=== PATIENT | male | born 1970 | race American Indian/Alaskan Native ===

== ENCOUNTER 2024-04-21 17:35 | Emergency (ER) | payer MEDICAID, SELFPAY ==
[2024-04-21 17:35] VITALS: BMI 39.9
[2024-04-21 18:01] VITALS: BP 169/103; PULSE 96; RESP 20; TEMP 36.8; O2SAT 98; BMI 37.5
--- NOTE | 2024-04-21 18:16 | EDNOTE_ITS ---
ED Male Genitalurinary RME/HPI General Chief complaint: Abdominal Pain Stated complaint: LOWER ABD PAIN, HERNIA IS SWOLLEN Time Seen by Provider: 04/21/24 18:01 Source: patient Arrival date/time: 04/21/24 17:35 53-year-old male with past medical history right inguinal hernia pending visit with general surgeon Dr. To at presents emergency department complaining of right testicular/inguinal pain has been ongoing for over a year. Patient denies any fever, chills, diarrhea, nausea vomiting, dysuria, gross hematuria, or any other associated symptom. Mode of arrival: ambulatory Limitations: no limitations Related Data Previous Rx's ?Medication ?Instructions ?Recorded doxycycline hyclate 100 mg capsule 100 mg PO BID 10 days #20 caps 04/21/24 ibuprofen 600 mg tablet 600 mg PO Q8H PRN pain #20 tabs 04/21/24 Allergies Allergy/AdvReac Type Severity Reaction Status Date / Time No Known Allergies Allergy Verified 04/21/24 17:37 Review of Systems Review of Systems Systems Reviewed: All systems reviewed, normal except as documented Constitutional Constitutional: Reports system reviewed and no additional complaints, except as documented, Denies body ache(s), Denies chills and Denies fever(s) Eyes Eyes: Reports system reviewed and no additional complaints, except as documented and Denies change in vision ENT Ears, Nose, Mouth, and Throat: Reports system reviewed and no additional complaints, except as documented, Denies disequilibrium, Denies dizziness, Denies sore throat and Denies vertigo Cardiovascular Cardiovascular: Reports system reviewed and no additional complaints, except as documented, Denies chest pain and Denies dyspnea Respiratory Respiratory: Reports system reviewed and no additional complaints, except as documented, Denies chest congestion, Denies cough and Denies dyspnea Gastrointestinal Gastrointestinal: Reports system reviewed and no additional complaints, except as documented, Denies abdominal pain, Denies nausea and Denies vomiting Genitourinary Genitourinary: Reports testicular pain Musculoskeletal Musculoskeletal: Reports system reviewed and no additional complaints, except as documented, Denies abnormal gait and Denies arthralgias Integumentary/Breasts Skin/Breast: Reports system reviewed and no additional complaints, except as documented, Denies erythema, Denies rash and Denies wounds Neurologic Neurologic: Reports system reviewed and no additional complaints, except as documented, Denies abnormal gait, Denies disequilibrium, Denies dizziness and Denies vertigo Past Medical History Past Medical History CARDIAC: Negative Congestive Heart Failure RESPIRATORY: Negative Chronic Obstructive Pulmonary Disease (COPD) GASTROINTESTINAL: Positive Gastrointestinal Disorders and Obstructive Bowel GENITOURINARY: Negative Renal Disease ENDOCRINE: Negative Diabetes Mellitus Type 1 or Diabetes Mellitus Type 2 Social History SMOKING STATUS: Current every day smoker ED Exam General Limitations: Present no limitations General appearance: Present alert and in no apparent distress Head Head exam: Present atraumatic Eye Eye exam: Present normal appearance, PERRL and EOMI ENT ENT exam: Present normal exam, normal oropharynx and mucous membranes moist Neck Neck exam: Present normal inspection, full ROM and trachea midline Chest Chest inspection: Present normal inspection and symmetric chest wall rise Respiratory Respiratory exam: Present normal lung sounds bilaterally Cardiovascular Cardiovascular exam: Present regular rate, normal rhythm and normal heart sounds Abdominal Exam Abdominal exam: Present soft and normal bowel sounds exam: Present testicular tenderness (Right testicle) and normal testicular lie; Absent urethral discharge or scrotal swelling Extremities Exam Extremities exam: Present normal inspection and full ROM Back Exam Back exam: Present normal inspection and full ROM Neurological Exam Neurological exam: Present alert, oriented X3 and CN II-XII intact Psychiatric Psychiatric exam: Present normal affect and normal mood Skin Skin exam: Present warm, dry, intact and normal color Course Quality Measures none Orders Category Date Time Status US testicular Stat Exams 04/21/24 18:18 Completed Urinalysis, C/S if Indicated Stat Lab 04/21/24 18:43 Completed Urine Culture Stat Lab 04/21/24 18:43 Received Ketorolac Inj [Toradol Inj] Med 04/21/24 18:16 Discontinued 30 mg IM X1 ONE cefTRIAXone [Rocephin] 1,000 mg Med 04/21/24 19:49 Discontinued Lidocaine 1% 20 ml [Xylocaine 1% 20 ML] 2.1 ml IM X1 Vital Signs Vital signs: Vital Signs Temperature 98.2 F 04/21/24 18:01 Pulse Rate 96 04/21/24 18:01 Respiratory Rate 20 04/21/24 18:01 Blood Pressure 169/103 H 04/21/24 18:01 Pulse Oximetry (%) 98 04/21/24 18:01 Oxygen Delivery Method Room Air 04/21/24 18:01 98% room air within normal limits Urogenital - Male MDM Narrative MDM Narrative:: 53-year-old male with past medical history right inguinal hernia pending visit with general surgeon Dr. To at [facility] emergency department complaining of right testicular/inguinal pain has been ongoing for over a year. Patient denies any fever, chills, diarrhea, nausea vomiting, dysuria, gross hematuria, or any other associated symptom. Patient appears nontoxic and hemodynamically stable. Ultrasound finding: Impression: No testicular torsion or testicular mass Right epididymitis Patient given IM Rocephin and discharged home on oral doxycycline. Patient instructed to follow-up with primary care provider in 24 to 48 hours and return to emergency department for any worsening symptoms or as needed. Patient data External records reviewed:: [facility] previous records Clinical information provided by:: patient Social determinants that could affect healthcare access:: housing Patient has the following chronic illnesses:: See chart How is presenting disease/condition affected by chronic disease/condition?: uneffected by Evaluation data The following diagnostics were reviewed and interpreted by me:: lab results and radiology exam(s) Lab and/or radiology exams considered but not ordered:: Ordered Interpretation Summary: Interpreted by me Medications / Prescriptions Medications or Prescriptions considered but not ordered:: Ordered Medication administrations:: Medication Administration History Discontinued Medications Ceftriaxone Sodium 1,000 mg/ (Lidocaine HCl 2.1 ml) 0 mg IM X1 ONE Stop: 04/21/24 19:50 Last Admin: 04/21/24 19:58 Dose: 2.1 mg Documented By: OA Ketorolac Tromethamine (Ketorolac Inj 60 Mg/2 Ml Vial) 30 mg IM X1 ONE Stop: 04/21/24 18:17 Last Admin: 04/21/24 18:24 Dose: 30 mg Documented By: OA Given Consultations Consultation(s) initiated? (list below): No Diagnosis Urogenital Male Differential Diagnosis: urinary tract infection, epididymitis, g enital herpes simplex and inguinal hernia Most likely diagnosis given after review of the tests above:: Epididymitis Admission Indicated Admission indicated?: not indicated Admission Request Was there a request for admission?: No Disposition Plan Disposition Plan: Discharge Discharge Attestation Discharge Attestation: The patient and all family members were given an opportunity to ask questions and understood the discharge instructions. Discharge instructions specifically effects, indications for sooner follow up or return to the emergency department, and the expected course of current diagnosis. Patient condition: Stable Discharge Plan Plan Patient Disposition: HOME (Self Care) Disposition Comment: Stable Prescriptions/Referrals Prescriptions/Med Rec: New doxycycline hyclate 100 mg capsule 100 mg PO BID 10 Days Qty: 20 0RF ibuprofen 600 mg tablet 600 mg PO Q8H PRN (Reason: pain) Qty: 20 0RF Referrals: Ketan([facility]WAGNER Bryant [Primary Care Provider] - In 1 week Problem List Clinical Impression: Acute epididymitis Patient/Caregiver Discharge Instructions Discharge Activity: activity as tolerated Education Materials: ED Epididymitis Additional Instructions: Take medication as prescribed. Close follow-up with primary care provider in 24 to 40 hours. Return to emergency department for any worsening symptoms or as needed. Print Language: Nauruan Stand Alone Forms: Claire Award Info., Patient Portal Info Letter AVRIL/WAGNER Supervising Physician AVRIL/WAGNER Supervising Physician: Dr. Zambrano
--- NOTE | 2024-04-21 18:18 | XR_ITS ---
Examination: Testicular sonography complete Technique: Multiple high-resolution grayscale sonographic images testes, assessment arterial inflow venous outflow Doppler spectral analysis carful analysis Exam date and time: April 21, 2024 1841 hrs. Indications: Onset right testicular pain beginning one year ago, worse today. Findings: Right testis 4.8 x 2.8 x 3.5 cm Epididymis 14 mm Arterial flow to the testicle. No testicular mass Left testis 4.2 x 2.5 x 3.4 cm Epididymis 17 mm Arterial flow testicle. No testicular mass Mild left hydrocele Impression: No testicular torsion or testicular mass Right epididymitis
[2024-04-21] MEDS: KETOROLAC INJ 60 MG/2 ML VIAL 30 MG IM (18:24)
[2024-04-21 18:51] LABS: Collection Type, Urine Clean Catch; Squamous Epithelial Cell,Urine 0 /hpf (0-5)
[2024-04-21 19:00] LABS: Bacteria,Urine 3+; Bilirubin,Urine Negative (Negative); Blood,Urine Negative (Negative); Clarity,Urine Clear (Clear/Hazy); Color,Urine Lt-Yellow (Lt Yel-Yel); Glucose, Urine Trace (Negative); Hyaline Casts,Urine < 1 /hpf (0-1); Ketones,Urine Negative (Negative); Leukocyte Esterase,Urine Negative (Negative); Nitrite,Urine Negative (Negative); Protein,Urine 1+ (Neg - Trace); RBC,Urine 3 /hpf (0-3); Specific Gravity,Urine 1.026 (1.001-1.035); Urobilinogen,Urine Negative mg/dL (0.0-1.0); WBC,Urine 2 /hpf (0-5)
[2024-04-21 19:01] LABS: Culture Indicated,Urine Yes
[2024-04-21] MEDS: cefTRIAXone 1,000 MG, LIDOCAINE 1% 20 ML 2.1 ML IM (19:58)
== END 2024-04-21 20:03 | disposition home or self-care (01) ==
PROVIDERS: Emergency Provider Emergency Medicine; PCP Nurse Practitioner Family
DX: N45.1 Epididymitis (principal)
CPT/HCPCS: 76870; 81001; 87086; 96372; 99284; J0696; J1885; J3490

== ENCOUNTER 2024-10-07 14:00 | Emergency (ER) | payer MEDICAID, SELFPAY ==
[2024-10-07 14:11] VITALS: BP 152/98; PULSE 73; RESP 20; TEMP 37.2; O2SAT 98
--- NOTE | 2024-10-07 14:11 | PD.EDRME ---
Rapid Medical Screening Exam RME Arrival date/time: 10/07/24 14:00 54-year-old male presents the emergency department for complaint of right inguinal pain Chief Complaint: Abdominal Pain
[2024-10-07 14:53] LABS: Collection Type, Urine Clean Catch
[2024-10-07 15:09] LABS: Bilirubin,Urine Negative (Negative); Blood,Urine Negative (Negative); Clarity,Urine Clear (Clear/Hazy); Color,Urine Yellow (Lt Yel-Yel); Culture Indicated,Urine Not Indicated; Glucose, Urine Negative (Negative); Ketones,Urine Negative (Negative); Leukocyte Esterase,Urine Negative (Negative); Nitrite,Urine Negative (Negative); Protein,Urine Trace (Neg - Trace); RBC,Urine 3 /hpf (0-3); Squamous Epithelial Cell,Urine 1 /hpf (0-5); WBC,Urine 1 /hpf (0-5)
[2024-10-07 15:10] LABS: Basophils % (Auto) 0 % (0-2.5); Eosinophils # (Auto) 0.3 Thou/mm3 (0.0-0.5); Eosinophils % (Auto) 4 % (0-10); Hematocrit 43.9 % (41.0-53.0); Immature Granulocytes % (Auto) 0 % (0-0); Immature Granulocytes Auto 0.02 Thou/mm3 (0.00-0.00); Lymphocytes # (Auto) 1.9 Thou/mm3 (1.0-4.8); Lymphocytes % (Auto) 26 % (10-50); Mean Corpuscular HGB Conc 34.2 g/dl (31.0-37.0); Mean Corpuscular Hemoglobin 30.7 pg (25.0-35.0); Mean Corpuscular Volume 90 fL (80-100); Monocytes # (Auto) 0.7 Thou/mm3 (0.0-0.8); Monocytes % (Auto) 9 % (0-12); Neutrophils # (Auto) 4.5 Thou/mm3 (1.8-7.7); Neutrophils % (Auto) 61 % (37-80); Nucleated Red Blood Cell % 0 /100 WBC (0); Platelet Count 223 Thou/mm3 (140-440); RDW Standard Deviation 43.5 fL (35.1-43.9); Red Blood Count 4.88 Miln/mm3 (4.50-5.90); White Blood Count 7.4 Thou/mm3 (3.8-10.6)
[2024-10-07 15:22] LABS: Alanine Aminotransferase 27 U/L (10-49); Albumin, Serum 4.4 gm/dL (3.5-5.0); Albumin/Globulin Ratio 1.6 (1.2-2.2); Alkaline Phosphatase 134 U/L (46-116); Anion Gap 8 (7-16); Aspartate Amino Transferase 23 U/L (0-34); BUN/Creatinine Ratio 13 Ratio (12-20); Bilirubin,Total 0.9 mg/dL (0.3-1.2); Blood Urea Nitrogen 16 mg/dL (9-23); Calcium 9.3 mg/dL (8.3-10.6); Calcium (Corrected) 9.3 mg/dL (8.5-10.1); Carbon Dioxide 24.4 mMol/L (20.0-31.0); Chloride 108 mMol/L (98-107); Creatinine (Component) 1.2 mg/dL (0.6-1.3); Estimated Creatinine Clearance 86.6 mL/min (>60); Globulin 2.7 gm/dL (2.3-3.5); Glucose 129 mg/dL (74-106); Lipase 35 U/L (12-53); Osmolality,Calculated 282 (275-295); Potassium 3.9 mMol/L (3.4-5.1); Sodium 140 mMol/L (136-145); Total Protein 7.1 gm/dL (5.7-8.2); eGFR > 60 See Note
[2024-10-07 15:34] LABS: Amphetamine/Methamp Scrn,U Positive (Negative); Barbiturate Screen,Urine Negative (Negative); Benzodiazepines Screen,Urine Negative (Negative); Benzoylecgonine Screen, Ur Negative (Negative); Fentanyl Screen,Urine Negative (Negative); Opiate Screen,Urine Negative (Negative); THC Screen,Urine Negative (Negative)
[2024-10-07 15:53] LABS: Sperm,Urine Present
--- NOTE | 2024-10-07 16:20 | XR_ITS ---
Examination: CT abdomen and pelvis without contrast. Coronal 3-D reconstructions. Sagittal 2-D reconstructions. Date and time of exam:October 07, 2024 1654 hours INDICATIONS: Lower abdominal pain beginning one day ago, history of hernia repair CTDI: vol (mGy): 11.6 DLP: (mGycm): 854 Technique: Axial images of the abdomen have been obtained, 3 mm slice thickness Intravenous contrast material has not been administered. Low dose protocols were performed. One or more of the following dose reduction techniques were used; automated exposure control, adjustment of the mA and/or KV according to patient size, use of iterative reconstruction technique. Findings: Fatty infiltration throughout the liver Contracted gallbladder Spleen not enlarged No pancreatic or adrenal mass Mild renal parenchymal scar formation No renal or ureteral calculi, no hydronephrosis Absent appendix 5 mm fat-containing umbilical hernia Minimal thickening of the urinary bladder wall Transverse prostate dimension 5.3 cm Small fat-containing inguinal hernias Advanced disc narrowing L2-L3 IMPRESSION: Mild renal parenchymal scar formation No renal or ureteral calculi, no hydronephrosis Absent appendix No bowel obstruction 5 mm fat-containing above the hernia Minimal urinary bladder wall thickening, consider cystitis
[2024-10-07 18:08] VITALS: BP 147/99; PULSE 77; RESP 18; TEMP 36.6; O2SAT 97
--- NOTE | 2024-10-07 18:32 | PC.NURSE ---
WENT WITH DR TORRES TO EXAM PATIENT, PATIENT REFUSED TO LET MD VISUALLY EXAM PATIENTS COMPLAINT AREA. PT STATES ISNT THAT WHAT THE CT IS FOR . MD INFORMED PATIENT THAT HE NEEDS TO DO AN EXAM AND PATIENT STILL REFUSES
--- NOTE | 2024-10-07 18:32 | PD.EDABDPN ---
ED Abdominal Pain RME/HPI General Chief Complaint: Abdominal Pain Stated complaint: I THINK MY R) HERNIA BUSTED THIS MORNING. Time seen by provider: 10/07/24 18:20 Arrival date/time: 10/07/24 14:00 RME / HPI RME / HPI narrative: 10/07/24 14:00 54-year-old male presents the emergency department for complaint of right inguinal pain ----- Dr. Poon?s Main ED Evaluation: 54yo male presents to the ED for a chief complaint of right inguinal pain x this morning. Patient states he felt something explode , reporting he's had a warm feeling that radiates to his testicles since 1000. Patient denies any N/V/D, fever, chills, constipation, dysuria or any other associated symptoms. No known allergies. PCP is [facility]. Related Data Previous Rx's ?Medication ?Instructions ?Recorded ibuprofen 600 mg tablet 600 mg PO Q8H PRN pain #20 tabs 04/21/24 Allergies Allergy/AdvReac Type Severity Reaction Status Date / Time No Known Allergies Allergy Verified 10/07/24 14:03 Review of Systems Review of Systems Systems Reviewed: All systems reviewed, normal except as documented Past Medical History Past Medical History CARDIAC: Negative Congestive Heart Failure RESPIRATORY: Negative Chronic Obstructive Pulmonary Disease (COPD) GASTROINTESTINAL: Positive Gastrointestinal Disorders and Obstructive Bowel GENITOURINARY: Negative Renal Disease ENDOCRINE: Negative Diabetes Mellitus Type 1 or Diabetes Mellitus Type 2 Social History SMOKING STATUS: Current every day smoker ED Exam Narrative Physical exam: Patient refused physical examination. Course Quality Measures none Orders Category Date Time Status CT abdomen pelvis wo con Stat Exams 10/07/24 16:20 Completed CBC Stat Lab 10/07/24 14:46 Completed Comprehensive Metabolic Panel Stat Lab 10/07/24 14:46 Completed Drug Screen,Urine Stat Lab 10/07/24 14:33 Completed Lipase Stat Lab 10/07/24 14:46 Completed UA, C/S IF [Urinalysis, C/S if Indicated] Stat Lab 10/07/24 14:33 Completed Vital Signs Vital signs: Vital Signs Temperature 99.0 F 10/07/24 14:11 Pulse Rate 73 10/07/24 14:11 Respiratory Rate 20 10/07/24 14:11 Blood Pressure 152/98 H 10/07/24 14:11 Pulse Oximetry (%) 98 10/07/24 14:11 Oxygen Delivery Method Room Air 10/07/24 14:11 Abdominal Pain MDM MDM Narrative MDM Narrative:: Scribe Attestation: 10/07/24 - Sherice Tsai am scribing for and in the presence of Dr. Poon. 182: Patient refused to be physically examined. Patient states I had a CT done already, so I don't need you to examine me . 184: I discussed lab and diagnostic results with the patient. He continues to decline a physical examination. I informed the patient that I'm unable to make a final diagnosis for his pain due to not allowing me to perform a physical examination. Patient is signing out against medical advice and was informed the risks versus benefits of signing out AMA. Patient data External records reviewed:: [facility] previous records (Per chart review, patient was seen here on 04/21/24 for acute epididymitis.) Clinical information provided by:: patient Social determinants that could affect healthcare access:: none Patient has the following chronic illnesses:: none How is presenting disease/condition affected by chronic disease/condition?: no chronic disease Evaluation data The following diagnostics were reviewed and interpreted by me:: lab results and radiology exam(s) Lab and/or radiology exams considered but not ordered:: none Interpretation Summary: CBC is normal, CMP is normal, Lipase is normal, UA is unremarkable, UDS is positive for methamphetamines, according to my interpretation. [place] [facility] [facility] Report Signed Patient: YI FU. Record#: [id number] Birthdate: 1970 Age/Sex: 54 / M Location: [facility] Attending Dr: Ordering Physician: Lul (SELENA)Aaron NP Date of Service: 10/07/24 Procedure(s): CT abdomen pelvis wo [facility] Accession Number(s): [id number] cc: Lul SILVESTRE),Aaron WALTERS; Ramon Velázquez MD; NO PRIMARY/FAMILY,PHYSICIAN~ Examination: CT abdomen and pelvis without contrast. Coronal 3-D reconstructions. Sagittal 2-D reconstructions. Date and time of exam:October 07, 2024 1654 hours INDICATIONS: Lower abdominal pain beginning one day ago, history of hernia repair CTDI: vol (mGy): 11.6 DLP: (mGycm): 854 Technique: Axial images of the abdomen have been obtained, 3 mm slice thickness Intravenous contrast material has not been administered. Low dose protocols were performed. One or more of the following dose reduction techniques were used; automated exposure control, adjustment of the mA and/or KV according to patient size, use of iterative reconstruction technique. Findings: Fatty infiltration throughout the liver Contracted gallbladder Spleen not enlarged No pancreatic or adrenal mass Mild renal parenchymal scar formation No renal or ureteral calculi, no hydronephrosis Absent appendix 5 mm fat-containing umbilical hernia Minimal thickening of the urinary bladder wall Transverse prostate dimension 5.3 cm Small fat-containing inguinal hernias Advanced disc narrowing L2-L3 IMPRESSION: Mild renal parenchymal scar formation No renal or ureteral calculi, no hydronephrosis Absent appendix No bowel obstruction 5 mm fat-containing above the hernia Minimal urinary bladder wall thickening, consider cystitis Dictated By: Ramon Velázquez MD Signed By: <Electronically signed by Ramon Velázquez MD in OV> 10/07/24 5363 Medications / Prescriptions Medications or Prescriptions considered but not ordered:: none Medication administrations:: none Consultations Consultation(s) initiated? (list below): No Diagnosis Differential diagnosis abdominal pain: other (incarcerated inguinal hernia, nonincarcerated inguinal hernia, direct inguinal hernia) Most likely diagnosis given after review of the tests above:: see clinical impression below Admission Indicated Admission indicated?: not indicated Admission Request Was there a request for admission?: No Disposition Plan Disposition Plan: other (specify) (Patient is signing out against medical advice.) Discharge Plan Plan Patient Disposition: Left Against Medical Advice Discharge Disposition comment: AGAINST MEDICAL ADVICE Patient condition on transfer: Stable Prescriptions/Referrals Prescriptions/Med Rec: No Action ibuprofen 600 mg tablet 600 mg PO Q8H PRN (Reason: pain) Qty: 20 0RF Referrals: [facility] [Provider Group] - In 1 week No Primary/Family,Physician [Primary Care Provider] - In 1 week Problem List Clinical Impression: Abdominal pain Patient/Caregiver Discharge Instructions Education Materials: Abdominal Pain Additional Instructions: Just because you are leaving the emergency department AGAINST MEDICAL ADVICE does not mean you cannot come back at any time. When you are ready to allow an exam and a full workup please return to the ER and we will gladly help you. Otherwise you should see your primary care doctor or a doctor in [facility] as soon as possible. It is not possible to diagnose the source of your pain without a physical exam. Print Language: Greenlandic
== END 2024-10-07 19:03 | disposition left against medical advice (07) ==
PROVIDERS: Nurse Practitioner Primary Care; Emergency Provider Emergency Medicine
DX: R10.31 Right lower quadrant pain (principal)
CPT/HCPCS: 36415; 74176; 80053; 80307; 81001; 83690; 85025; 99284

== ENCOUNTER 2025-03-17 20:49 | Emergency (ER) | payer MEDICAID, SELFPAY ==
[2025-03-17 20:50] VITALS: BMI 38.4
[2025-03-17 21:02] VITALS: BP 164/100; PULSE 99; RESP 20; TEMP 36.6; O2SAT 96
--- NOTE | 2025-03-17 21:19 | EDNOTE_ITS ---
ED Abdominal Pain RME/HPI General Chief Complaint: Abdominal Pain Stated complaint: HERNIA CAUSING PAIN Time seen by provider: 03/17/25 21:02 Arrival date/time: 03/17/25 20:49 54-year-old male who has a history of ventral hernia repair and small inguinal hernia reports with complaints of persistent abdominal pain. Patient has been seen over the last year for the same pain issues having numerous ultrasounds and CT imaging all with benign findings. Patient states that he has not been evaluated by GI specialist as he was unable to get an appointment. He denies any vomiting nausea fever or chills dysuria urinary urgency frequency hesitancy hematuria testicular swelling testicular pain penile swelling pain or lesions. Patient states that he has not taken any medications but he can no longer tolerate the pain in his abdomen Limitations: no limitations Related Data Previous Rx's ?Medication ?Instructions ?Recorded ibuprofen 600 mg tablet 600 mg PO Q8H PRN pain #20 t abs 04/21/24 Allergies Allergy/AdvReac Type Severity Reaction Status Date / Time No Known Allergies Allergy Verified 03/17/25 20:50 Review of Systems Constitutional Constitutional: Denies chills and Denies fever(s) Cardiovascular Cardiovascular: Denies chest pain, Denies diaphoresis and Denies dyspnea Respiratory Respiratory: Denies cough and Denies dyspnea Gastrointestinal Gastrointestinal: Reports abdominal pain, Denies diarrhea, Denies nausea and Denies vomiting Genitourinary Genitourinary: Denies difficulty urinating, Denies scrotal swelling, Denies testicular mass, Denies testicular pain, Denies urinary incontinence and Denies urinary urgency Past Medical History Past Medical History CARDIAC: Negative Congestive Heart Failure RESPIRATORY: Negative Chronic Obstructive Pulmonary Disease (COPD) GASTROINTESTINAL: Positive Gastrointestinal Disorders and Obstructive Bowel GENITOURINARY: Negative Renal Disease ENDOCRINE: Negative Diabetes Mellitus Type 1 or Diabetes Mellitus Type 2 Social History SMOKING STATUS: Former smoker ED Exam General Limitations: Present no limitations General appearance: Present alert and in no apparent distress Chest Chest inspection: Present normal inspection and symmetric chest wall rise Respiratory Respiratory exam: Present normal lung sounds bilaterally Cardiovascular Cardiovascular exam: Present regular rate, normal rhythm and normal heart sounds Abdominal Exam Abdominal exam: Present soft and normal bowel sounds exam: Present other (pt refused genital exam) Extremities Exam Extremities exam: Present normal inspection and full ROM Back Exam Back exam: Present normal inspection and full ROM Neurological Exam Neurological exam: Present alert, oriented X3 and CN II-XII intact Psychiatric Psychiatric exam: Present normal affect and normal mood Skin Skin exam: Present warm, dry, intact and normal color Course Quality Measures none Vital Signs Vital signs: Vital Signs Temperature 97.8 F 03/17/25 21:02 Pulse Rate 99 03/17/25 21:02 Respiratory Rate 20 03/17/25 21:02 Blood Pressure 164/100 H 03/17/25 21:02 Pulse Oximetry (%) 96 03/17/25 21:02 Oxygen Delivery Method Room Air 03/17/25 21:02 Abdominal Pain MDM Patient data External records reviewed:: [facility] previous records Clinical information provided by:: patient Social determinants that could affect healthcare access:: none Patient has the following chronic illnesses:: none How is presenting disease/condition affected by chronic disease/condition?: no chronic disease Evaluation data The following diagnostics were reviewed and interpreted by me:: other (specify) (none) Lab and/or radiology exams considered but not ordered:: none Interpretation Summary: n/a Medications / Prescriptions Medications or Prescriptions considered but not ordered:: none Medication administrations:: Toradol 30 mg IM Consultations Consultation(s) initiated? (list below): No Diagnosis Differential diagnosis abdominal pain: abdominal pain, constipation and gastroenteritis Most likely diagnosis given after review of the tests above:: chronic abdominal pain Admission Indicated Admission indicated?: not indicated Admission Request Was there a request for admission?: No Disposition Plan Disposition Plan: Discharge Discharge Attestation Discharge Attestation: The patient and all family members were given an opportunity to ask questions and understood the discharge instructions. Discharge instructions specifically effects, indications for sooner follow up or return to the emergency department, and the expected course of current diagnosis. Patient condition: Stable Discharge Plan Plan Patient Disposition: HOME (Self Care) Prescriptions/Referrals Prescriptions/Med Rec: No Action ibuprofen 600 mg tablet 600 mg PO Q8H PRN (Reason: pain) Qty: 20 0RF Referrals: Roxane Miramontes MD [Physician, Gastroenterology] - In 1 week Problem List Clinical Impression: Chronic abdominal pain Patient/Caregiver Discharge Instructions Discharge Activity: activity as tolerated Education Materials: Abdominal Pain Additional Instructions: Follow-up with your primary care provider and the GI specialist for further evaluation Print Language: Nigerian Stand Alone Forms: Claire Award Info., Patient Portal Info Letter
[2025-03-17] MEDS: KETOROLAC INJ 30 MG/ML VIAL IM (21:34)
== END 2025-03-17 21:45 | disposition home or self-care (01) ==
LOC: SERX 21:39
PROVIDERS: Emergency Provider Emergency Medicine; PCP Nurse Practitioner Family
DX: R10.9 Unspecified abdominal pain (principal); G89.29 Other chronic pain
CPT/HCPCS: 96372; 99284; J1885